=== PATIENT | male | born 1980 | race Caucasian/White ===

== ENCOUNTER 2022-03-07 11:19 | Emergency (ER) | payer SELFPAY ==
[2022-03-07 11:36] VITALS: BP 127/80; PULSE 62; RESP 18; TEMP 36.2; O2SAT 98; BMI 26.6
--- NOTE | 2022-03-07 12:42 | CRLHL7_ITS ---
For Patients: As a result of the Century Cures Act, medical imaging exams and procedure reports are released immediately into your electronic medical record. You may view this report before your referring provider. If you have questions, please contact your health care provider. Indication: Trauma Technique: A total of two views of the left index finger were acquired. Comparison: None Findings: Bones: Alignment is normal. No fractures or bone lesions. Joint spaces: Unremarkable. Soft tissues: Soft tissue swelling Impression: No visible acute fracture, dislocation or destructive process involving the left index finger. Soft tissue swelling. Dictated by Joe Chatman MD @ 03/07/2022 1:07:34 PM (Electronically Signed)
--- NOTE | 2022-03-07 13:00 | ED.GENADULT ---
HPI - General Adult General Chief complaint: Extremity Pain/Injury, Upper Stated complaint: left hand shakiness Time Seen by Provider: 03/07/22 12:38 Source: patient Mode of arrival: ambulatory Limitations: no limitations History of Present Illness HPI narrative: 41-year-old male coming in today with finger pain. Patient states that 3 weeks ago he was playing basketball with his son when the basketball hit his finger and hyper extended it. He believes that the PIP was dislocated and he had to put it back in place. Since then he has not been able to flex his finger. He continues to be swollen and painful. Related Data Home Medications Medication Instructions Recorded Confirmed No Known Home Medications 03/07/22 03/07/22 Allergies Allergy/AdvReac Type Severity Reaction Status Date / Time No Known Drug Allergies Allergy Verified 03/07/22 11:39 Review of Systems Narrative: Denies other injury or joint pain. Exam Narrative: Exam Narrative: Well-nourished well-developed patient in no acute distress. Alert and oriented. Answers questions appropriately. Mood and affect are appropriate. Thoughts are goal oriented and rational. HEENT: Normocephalic atraumatic. Pupils are equally round reactive to light. Extraocular muscles are intact. Conjunctivae are moist without any icterus noted. Extremities: Index finger on the left is swollen. He can flex few degrees at the PIP and 0? at the DIP. He has no pain or trouble with movement at the MCP. Remainder of the hand is normal. Skin: Well perfused without any obvious rashes. Const: Vital Signs, click to edit/add: Vital Signs - 24 hr 03/07/22 11:36 Temperature 97.2 F L Pulse Rate [Right Pulse Oximeter] 62 Respiratory Rate 18 Blood Pressure [Ri ght Upper Arm] 127/80 Pulse Oximetry 98 Oxygen Delivery Me thod Room Air Course Course Hospital Course: Finger x-ray was done: No acute bony abnormality. Vital Signs Vital signs: Initial Vital Signs Temperature 97.2 F L 03/07/22 11:36 Temperature Source Temporal Artery Scan 03/07/22 11:36 Pulse Rate 62 03/07/22 11:36 Respiratory Rate 18 03/07/22 11:36 Blood Pressure 127/80 03/07/22 11:36 Blood Pressure Mean 95 03/07/22 11:36 Blood Pressure Position Sitting 03/07/22 11:36 Pulse Oximetry 98 1007/22 11:36 Oxygen Delivery Method 03/07/22 11:36 Vital Signs Temperature 97.2 F L 03/07/22 11:36 Pulse Rate 62 03/07/22 11:36 Respiratory Rate 18 03/07/22 11:36 Blood Pressure 127/80 03/07/22 11:36 Pulse Oximetry 98 03/07/22 11:36 Oxygen Delivery Method 03/07/22 11:36 Temperature 97.2 F L 03/07/22 11:36 Pulse Rate 62 03/07/22 11:36 Respiratory Rate 18 03/07/22 11:36 Blood Pressure 127/80 03/07/22 11:36 Pulse Oximetry 98 03/07/22 11:36 Oxygen Delivery Method 03/07/22 11:36 Medical Decision Making MDM Narrative Medical decision making narrative: 41-year-old male with finger injury possible tendon rupture- patient will follow-up with orthopedics. Finger will be kalyani-taped for support. Imaging Data Finger x-ray: Attestation: I have reviewed the pertinent imaging results. My impression: No acute bony abnormality Radiologist's impression: A total of two views of the left index finger were acquired. Comparison: None Findings: Bones: Alignment is normal. No fractures or bone lesions.? Joint spaces: Unremarkable.? Soft tissues: Soft tissue swelling Impression: No visible acute fracture, dislocation or destructive process involving the left index finger. Soft tissue swelling. Discharge Plan Discharge Clinical Impression: Finger injury Patient Disposition: Home, Self-Care Condition: Stable Additional Instructions: You will need to have a follow-up appointment with orthopedic surgeon of specializes in hands. Prescriptions: No Action No Known Home Medications Stand Alone Forms: [facility] Info Instructions
--- NOTE | 2022-03-07 13:41 | ED.NURSE ---
Roman taped affected finger with third finger. Phone number provided for [facility].
== END 2022-03-07 14:03 | disposition home or self-care (01) ==
PROVIDERS: Emergency Provider Family Medicine
DX: S60.941A Unspecified superficial injury of left index finger, initial encounter (principal); Y93.67 Activity, basketball
CPT/HCPCS: 73140; 99283; 99284